=== PATIENT | male | born 2000 | race Caucasian/White ===

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

== ENCOUNTER 2020-03-27 20:01 | Emergency (ER) | payer OTHER, SELFPAY ==
[2020-03-27 20:15] VITALS: BP 140/87; PULSE 76; RESP 16; TEMP 36.5; O2SAT 97; BMI 22.4
--- NOTE | 2020-03-27 20:28 | ED.HA ---
HPI - Headache General Chief Complaint: Headache Stated Complaint: migraine, vomiting Time Seen by Provider: 03/27/20 20:17 Source: patient Mode of arrival: Ambulatory Limitations: no limitations History of Present Illness HPI Narrative: Patient is a 19-year-old male who has a history of migraines he was seen his primary doctor. Has a referral in to see Neurology but has not made any appointments yet with this specialist. Does have medications at home. States that he started to develop a headache gradually after he woke up this morning. No fevers. He states that in character this feels like his prior headaches. He took his medications today without any improvement. Has had some nausea and vomiting. Related Data Allergies Allergy/AdvReac Type Severity Reaction Status Date / Time No Known Drug Allergies Allergy Verified 03/27/20 20:15 Review of Systems Constitutional Constitutional: Denies fatigue, Denies fever(s) and Reports headache(s) ENT Ears, Nose, Mouth, and Throat: Reports headache(s) Cardiovascular Cardiovascular: Denies chest pain and Denies dyspnea Respiratory Respiratory: Denies dyspnea Gastrointestinal Gastrointestinal: Denies abdominal pain, Denies change in bowel habits, Reports nausea and Reports vomiting Genitourinary Genitourinary: Denies dysuria Genitourinary: Denies dysuria Musculoskeletal Musculoskeletal: Denies arthralgias and Denies myalgias Integumentary/Breasts Skin/Breast: Denies rash Neurologic Neurologic: Denies behavioral changes and Reports headache(s) Psychiatric Psychiatric: Denies behavioral changes Endocrine Endocrine: Denies fatigue Hematologic/Lymphatic Hematologic/Lymphatic: Denies easy bleeding and Denies easy bruising Patient History Medical History Migraine (Inactive) Social History Smoking Status: Never smoker Smoking Status: Never smoker Substance Use Type: does not use Exam Initial Vital Signs Initial Vital Signs: Vital Signs Temperature 97.7 F 03/27/20 20:15 Pulse Rate 76 03/27/20 20:15 Respiratory Rate 16 03/27/20 20:15 Blood Pressure 140/87 03/27/20 20:15 Pulse Oximetry 97 03/27/20 20:15 Const General: cooperative and comfortable Limitations: mental status not altered HENNV Head: normal to inspection and normocephalic Resp Effort & Inspection: normal respiratory effort Auscultation: clear to auscultation bilaterally Cardio Rate: regular rate Rhythm: regular rhythm Skin Lesions: no lesions Rashes: no rashes Neuro General: patient alert, patient awake and patient oriented x3 Cranial Nerves: CN's II-XI intact bilaterally Cognition: normal cognition Speech: speech normal Extrem General: normal to inspection and capillary refill normal Psych Appearance: grossly normal and well kempt Scores GCS Leonard coma scale eye opening: Spontaneous Leonard coma scale verbal response: Orientated [place] coma scale motor response: Obey commands Leonard coma scale total score: 15 Course Orders Ordered: Discontinued Medications Diphenhydramine HCl (Benadryl) 25 mg IV NOW ONE Stop: 03/27/20 20:23 Last Admin: 03/27/20 20:32 Dose: 25 mg Documented by: SHEMAR Sodium Chloride (Normal Saline 0.9%) 1,000 mls @ 1,000 mls/hr IV BOLUS ONE Stop: 03/27/20 21:26 Last Infusion: 03/27/20 21:23 Dose: 0 mls/hr Documented by: Admin: 03/27/20 20:32 Dose: 1,000 mls/hr Documented by: SHEMAR Ketorolac Tromethamine (Toradol) 30 mg IV NOW ONE Stop: 03/27/20 20:23 Last Admin: 03/27/20 20:32 Dose: 30 mg Documented by: SHEMAR Metoclopramide HCl (Reglan) 10 mg IV NOW ONE Stop: 03/27/20 20:23 Last Admin: 03/27/20 20:32 Dose: 10 mg Documented by: SHEMAR Vital Signs Vital signs: Vital Signs - 8 hr 03/27/20 20:15 Temperature 97.7 F Pulse Rate 76 Respiratory Rate 16 Blood Pressure 140/87 Pulse Oximetry 97 MDM - Headache MDM Narrative Medical decision making narrative: Patient had a complete resolution of his symptoms after the Reglan and Benadryl. He did have some anxiety after the Reglan but this did go away on its own. I have low suspicion for meningitis or stroke. Will have him continue his medications and follow up with his primary provider. He is given return precautions. He expressed understanding and agreement. Discharge Plan Departure Patient Disposition: Home Clinical Impression: Migraine Discharge Date/Time: 03/27/20 21:23 Instructions: DI for Migraine Activity Restrictions/Additional Instructions: Recommend you continue all of your medications as directed and also recommend you contact your primary provider for follow-up. Return to the emergency department for any new or worsening symptoms Referrals: Jose Patel MD [Primary Care Provider] -
[2020-03-27] MEDS: KETOROLAC 60 MG/2 ML VIAL 30 MG IV (20:32)
[2020-03-27] MEDS: SODIUM CHLORIDE 0.9% 1,000 ML 1000 ML IV (20:32)
[2020-03-27] MEDS: METOCLOPRAMIDE 10 MG/2 ML INJ IV (20:32)
[2020-03-27] MEDS: diphenhydrAMINE 50 MG/ML VIAL 25 MG IV (20:32)
== END 2020-03-27 21:23 | disposition home or self-care (01) ==
PROVIDERS: Emergency Provider Emergency Medicine; PCP Family Medicine
DX: G43.909 Migraine, unspecified, not intractable, without status migrainosus (principal); R11.2 Nausea with vomiting, unspecified
CPT/HCPCS: 96361; 96374; 96375; 99283; 99284; J1200; J1885; J2765

== ENCOUNTER → 2021-07-25 16:16 | Outpatient (CLI) | payer OTHER, SELFPAY ==
--- NOTE | 2021-07-25 | DI.RAD.S_ITS ---
PROCEDURE: XR SHOULDER RT MIN 2V INDICATIONS: Right Shoulder Pain TECHNIQUE: 3 views of the shoulder were acquired. COMPARISON: [facility], XR CXR 2 VIEW, 05/13/2002, 9:05. FINDINGS: Bones: No fractures or dislocations. No suspicious bony lesions. Visualized ribs appear intact. Soft tissues: No suspicious soft tissue calcifications. IMPRESSION: No definite radiographic abnormality. If pain persists with conservative management, consider cross sectional imaging such as CT or MRI for further assessment. Dictated by: Deven LANGE Interpreted: John Cifuentes MD on 07/25/2021 at 16:50 Transcribed by: GERTRUDIS on 07/25/2021 at 16:51 Approved by: John Cifuentes M.D. on 07/25/2021 at 17:32
== END ==
PROVIDERS: PCP Family Medicine; Referring Provider Family Medicine; Visit Provider Family Medicine
DX: M25.511 Pain in right shoulder (principal)
CPT/HCPCS: 73030

== ENCOUNTER → 2021-09-07 15:35 | Outpatient (CLI) | payer OTHER, SELFPAY ==
--- NOTE | 2021-09-07 | DI.RAD.S_ITS ---
PROCEDURE: XR CLAVICLE LT INDICATIONS: LEFT CLAVICLE PAIN, INJURY/FALL LAST SUNDAY TECHNIQUE: 2 views of the clavicle were acquired. COMPARISON: , [facility], XR SHOULDER RT MIN 2V, 07/25/2021, 17:27. FINDINGS: Bones: No fractures or dislocations. No suspicious bony lesions. Soft tissues: No suspicious soft tissue calcifications. IMPRESSION: No acute osseous abnormalities. If clinical symptoms persist, weight bearing views of the clavicles may be helpful. Dictated by: Dwight Montero M.D. on 09/07/2021 at 17:45 Approved by: Dwight Montero M.D. on 09/07/2021 at 17:46
== END ==
PROVIDERS: PCP Family Medicine; Referring Provider Chiropractor; Visit Provider Chiropractor
DX: S49.92XA Unspecified injury of left shoulder and upper arm, initial encounter (principal); M25.512 Pain in left shoulder; X58.XXXA Exposure to other specified factors, initial encounter
CPT/HCPCS: 73000

== ENCOUNTER → 2022-06-09 14:42 | Outpatient (ROUT) | payer OTHER, SELFPAY ==
[2022-06-09 15:27] LABS: COVID-19 CEPHEID 4-PLEX PCR Negative (Negative); Influenza A - CEPHEID Flu A NEGATIVE (NEGATIVE); Influenza B - CEPHEID Flu B NEGATIVE (NEGATIVE); Respiratory Syncytial Virus Negative (Negative)
== END ==
PROVIDERS: PCP Family Medicine; Visit Provider Family Medicine
DX: Z20.822 Contact with and (suspected) exposure to COVID-19 (principal)
CPT/HCPCS: 0241U